=== PATIENT | female | born 1985 | race African-American/Black ===

== ENCOUNTER 2021-01-07 16:30 | Emergency (ER) | payer BC ==
[2021-01-07 16:36] VITALS: BP 151/102; PULSE 76; TEMP 97; BMI 31.9
== END 2021-01-07 17:29 | disposition home or self-care (01) ==
LOC: JER 16:30
DX: Z11.52 Encounter for screening for COVID-19 (principal)
CPT/HCPCS: 99284-25; C9803; U0003

== ENCOUNTER 2021-07-24 21:30 | Emergency (ER) | payer BC ==
[2021-07-24 21:58] VITALS: BMI 30.9
[2021-07-24] MEDS ORDERED: CASIRIVIMAB/IMDEVIMAB (REGEN-COV) 600 MG/600 MG (10ML VIAL) IV ONE (22:18)
[2021-07-24] MEDS ORDERED: CASIRIVIMAB/IMDEVIMAB 10 ML in SODIUM CHLORIDE 100 ML IVPB ONE (22:30)
[2021-07-24 23:59] VITALS: BP 128/93; PULSE 77; TEMP 98.2
== END 2021-07-25 00:42 | disposition home or self-care (01) ==
LOC: JER 21:30
PROC: 3E033GC Introduction of Other Therapeutic Substance into Peripheral Vein, Percutaneous Approach (ICD-10-PCS; principal; 2021-07-24)
DX: U07.1 COVID-19 (principal)
CPT/HCPCS: 99284-25; M0240; Q0240

== ENCOUNTER 2022-06-01 08:43 | Emergency (ER) | payer BC ==
[2022-06-01 08:51] VITALS: BP 130/92; PULSE 86; TEMP 99; BMI 31.3
[2022-06-01] MEDS ORDERED: BEBTELOVIMAB (EUA) 175 MG/2 ML VIAL IVPUSH ONE (09:50)
== END 2022-06-01 10:40 | disposition home or self-care (01) ==
LOC: JCOVINFU 08:43 → JER 08:43 → JCOVINFU 10:40
DX: U07.1 COVID-19 (principal)
CPT/HCPCS: 99284-25; C9803-CS; U0003; U0005